=== PATIENT | male | born 1970 | race Caucasian/White ===

== ENCOUNTER → 2016-10-19 | Outpatient (CLI) | payer OTHER ==
[2016-10-19 09:43] LABS: MEAN CORPUSCULAR HEMOGLOBIN 30.4 pg (27.0-33.0); MEAN CORPUSCULAR HGB CONC 33.3 g/dl (32.0-36.5); MEAN CORPUSCULAR VOLUME 91.3 fl (80.0-96.0); RED CELL DISTRIBUTION WIDTH 13.1 % (11.5-14.5); WHITE BLOOD COUNT 5.3 K/mm3 (4.0-10.0)
[2016-10-19 09:53] LABS: ALBUMIN/GLOBULIN RATIO 1.11 (1.00-1.93); BILIRUBIN,TOTAL 0.8 MG/DL (0.2-1.0); CALCIUM LEVEL 9.5 MG/DL (8.5-10.1); CREATININE FOR GFR 1.39 MG/DL (0.70-1.30); GLOMERULAR FILTRATION RATE 58.6 (>60); TOTAL PROTEIN 7.6 GM/DL (6.4-8.2)
[2016-10-19 09:56] LABS: INR 1.06
[2016-10-19 09:57] LABS: POTASSIUM SERUM 5.3 MEQ/L (3.5-5.1)
--- NOTE | 2016-10-20 01:51 | REP ---
Clinical: Operative assessment . Comparison: 04/26/2004 . Technique: PA and lateral. Findings: The mediastinum and cardiac silhouette are normal. Airway is midline and patent. The lung daniel are clear and without acute consolidation, effusion, or pneumothorax. The skeletal structures are intact and normal. Impression: 1. No acute cardiopulmonary process. Signed by Nilesh Tony MD 10/20/2016 01:43 A
--- NOTE | 2016-10-21 00:43 | ECGEPIP ---
Stationary ECG Study [facility] Test Date: 2016-10-19 Pat Name: DANAE HUTCHISON Department: Room: - Gender: M Linen Room Houseperson: KEVIN : 1970 Requested By: Jessica Rosales Order Number: [id number] Reading MD: Carlos Hill Measurements Intervals [place] Rate: 87 P: 59 [place]: 178 QRS: 79 QRSD: 103 T: -21 QT: 336 QTc: 405 Interpretive Statements SINUS RHYTHM ST ELEVATION CONSISTENT WITH EARLY REPOLARIZATION NONSPECIFIC ST & T-WAVE ABNORMALITY Last tracing on 04/26/2013 at 9:56:12. No significant changes but nonspecific ST-T abnormality Electronically Signed On 10-21-2016 0:43:43 EDT by Carlos Hill
== END ==
LOC: M LAB 08:29
PROVIDERS: ATTEND Family Medicine
DX: Z01.818 Encounter for other preprocedural examination (principal); R94.31 Abnormal electrocardiogram [ECG] [EKG]

== ENCOUNTER → 2016-11-04 | Outpatient (CLI) | payer OTHER ==
--- NOTE | 2016-11-04 10:54 | ECGEPIP ---
Stationary ECG Study [facility] Test Date: 2016-11-04 Pat Name: DANAE HUTCHISON Department: Room: - Gender: M Planning Management It Specialist: : 1970 Requested By: Jessica Rosales Order Number: [id number] Reading MD: Freya Carranza Measurements Intervals [place] Rate: 84 P: 60 TN: 166 QRS: 81 QRSD: 91 T: -21 QT: 339 QTc: 401 Interpretive Statements SINUS RHYTHM INF T-WAVE ABNORMALITY MILD EARLY REPOLAR CHANGES STABLE C/W 10/19/16 Electronically Signed On 11-04-2016 10:54:26 EDT by Freya Carranza
== END ==
LOC: M LAB 08:11
PROVIDERS: ATTEND Family Medicine
DX: E78.5 Hyperlipidemia, unspecified (principal); I10 Essential (primary) hypertension

== ENCOUNTER → 2018-10-05 | Outpatient (CLI) | payer BC ==
--- NOTE | 2018-10-05 16:17 | REP ---
Chest two views HISTORY: Fever Comparison: 10/19/2016 The lungs are clear. The heart is normal in size. The pulmonary vasculature is normal in appearance. The bony structure is intact. IMPRESSION: No acute disease. Electronically Signed by Jose Luis Amos MD 10/05/2018 04:09 P
[2018-10-05 19:54] LABS: BASO % 0.4 % (0.0-1.0); EOS # 0.3 10^3/uL (0.0-0.50); EOS % 4.3 % (0.0-3.0); HEMATOCRIT 53.5 % (42.0-52.0); HEMOGLOBIN 17.1 g/dl (13.5-17.5); LYMPH # 0.5 10^3/uL (1.5-4.5); LYMPH % 6.5 % (24.0-44.0); MEAN CORPUSCULAR HEMOGLOBIN 29.4 pg (27.0-33.0); MEAN CORPUSCULAR VOLUME 92.1 fl (80.0-96.0); MONO # 0.5 10^3/uL (0.0-0.8); MONO % 7.1 % (0.0-5.0); NEUTROPHILS # 5.7 10^3/uL (1.8-7.7); NEUTROPHILS % 81.3 % (36.0-66.0); PLATELET COUNT, AUTOMATED 214 10^3/uL (150-450); RED BLOOD COUNT 5.81 10^6/uL (4.30-6.10)
[2018-10-05 20:02] LABS: ALBUMIN 3.8 GM/DL (3.2-5.2); BILIRUBIN,TOTAL 0.5 MG/DL (0.2-1.0); CALCIUM LEVEL 8.9 MG/DL (8.5-10.1); CREATININE FOR GFR 1.42 MG/DL (0.70-1.30); GLOMERULAR FILTRATION RATE 56.6 (>60); POTASSIUM SERUM 4.3 MEQ/L (3.5-5.1); TOTAL PROTEIN 6.9 GM/DL (6.4-8.2)
== END ==
LOC: M WUC 15:57
PROVIDERS: ATTEND Physician Assistant
DX: R05 Cough (principal)

== ENCOUNTER → 2019-02-26 | Outpatient (CLI) | payer BC ==
[2019-02-26 16:25] LABS: BASO % 0.6 % (0.0-1.0); EOS # 0.3 10^3/uL (0.0-0.5); EOS % 5.4 % (0.0-3.0); HEMATOCRIT 53.5 % (42.0-52.0); HEMOGLOBIN 17.5 g/dl (13.5-17.5); LYMPH # 0.7 10^3/uL (1.5-5.0); LYMPH % 13.7 % (24.0-44.0); MEAN CORPUSCULAR HEMOGLOBIN 30.5 pg (27.0-33.0); MEAN CORPUSCULAR HGB CONC 32.7 g/dl (32.0-36.5); MEAN CORPUSCULAR VOLUME 93.4 fl (80.0-96.0); MONO # 0.6 10^3/uL (0.0-0.8); MONO % 11.2 % (0.0-5.0); NEUTROPHILS # 3.6 10^3/uL (1.5-8.5); NEUTROPHILS % 68.9 % (36.0-66.0); PLATELET COUNT, AUTOMATED 211 10^3/uL (150-450); RED BLOOD COUNT 5.73 10^6/uL (4.30-6.10); WHITE BLOOD COUNT 5.2 10^3/uL (4.0-10.0)
[2019-02-26 16:35] LABS: ALBUMIN 3.6 GM/DL (3.2-5.2); ALT/SGPT 39 U/L (12-78); BILIRUBIN,TOTAL 0.6 MG/DL (0.2-1.0); BLOOD UREA NITROGEN 11 MG/DL (7-18); CALCIUM LEVEL 8.7 MG/DL (8.5-10.1); CARBON DIOXIDE LEVEL 34 MEQ/L (21-32); CHLORIDE LEVEL 101 MEQ/L (98-107); CREATININE FOR GFR 1.31 MG/DL (0.70-1.30); GLOMERULAR FILTRATION RATE > 60.0 (>60); GLUCOSE, FASTING 77 MG/DL (70-100); POTASSIUM SERUM 4.8 MEQ/L (3.5-5.1); SODIUM LEVEL 139 MEQ/L (136-145); TOTAL PROTEIN 6.7 GM/DL (6.4-8.2)
[2019-02-26 18:52] LABS: CHLAMYDIA DNA AMPLIFICATION NEGATIVE (NEGATIVE); GC DNA AMPLIFICATION NEGATIVE (NEGATIVE)
== END ==
LOC: M WUC 14:10
PROVIDERS: ATTEND Physician Assistant
DX: R53.83 Other fatigue (principal); J02.9 Acute pharyngitis, unspecified; R30.0 Dysuria

== ENCOUNTER → 2020-07-02 | Outpatient (CLI) | payer BC ==
[2020-07-02 08:49] LABS: ALBUMIN 3.9 GM/DL (3.2-5.2); BILIRUBIN,TOTAL 0.4 MG/DL (0.2-1.0); CALCIUM LEVEL 8.7 MG/DL (8.5-10.1); CHOLESTEROL RISK RATIO 4.77 (<5); CREATININE FOR GFR 1.42 MG/DL (0.70-1.30); FREE T4 0.87 NG/DL (0.76-1.46); GLOMERULAR FILTRATION RATE 56.2 (>56); POTASSIUM SERUM 4.5 MEQ/L (3.5-5.1); THYROID STIMULATING HORMONE 7.18 uIU/ML (0.358-3.740); TOTAL PROTEIN 7.1 GM/DL (6.4-8.2)
== END ==
LOC: M LAB 07:43
PROVIDERS: ATTEND Family Medicine
DX: E78.2 Mixed hyperlipidemia (principal); Z13.1 Encounter for screening for diabetes mellitus; Z86.39 Personal history of other endocrine, nutritional and metabolic disease; Z12.5 Encounter for screening for malignant neoplasm of prostate
CPT/HCPCS: 36415; 80053; 80061; 84439; 84443; G0103

== ENCOUNTER → 2020-08-06 | Outpatient (CLI) | payer BC ==
[2020-08-06 08:37] LABS: CALCIUM LEVEL 8.9 MG/DL (8.5-10.1); CREATININE FOR GFR 1.41 MG/DL (0.70-1.30); GLOMERULAR FILTRATION RATE 56.6 (>56); POTASSIUM SERUM 4.3 MEQ/L (3.5-5.1)
== END ==
LOC: M LAB 07:38
PROVIDERS: ATTEND Family Medicine
DX: R94.4 Abnormal results of kidney function studies (principal)

== ENCOUNTER → 2020-08-15 | Outpatient (CLI) | payer SELFPAY | LOC: M LABSMTC 09:50 | PROVIDERS: ATTEND Pediatrics | DX: Z20.822 Contact with and (suspected) exposure to COVID-19 (principal) ==

== ENCOUNTER → 2020-08-20 | Outpatient (CLI) | payer BC ==
--- NOTE | 2020-08-21 13:51 | SLEEPHOME ---
DATE: 08/20/2020 ORDERED BY: DORINA Osborne Diagnostic home sleep testing was performed due to concern for the obstructive sleep apnea syndrome in this patient with a history of excessive somnolence and nonrestorative sleep. For testing, a nocturnal T3 respiratory monitoring device was used. Continuous record was made of pulse, oxygen saturation, air flow, chest and abdominal strain, and body position. Nine hours and 59 minutes of data were reviewed. There were 9 hours and 29 minutes marked as time in bed. During the interval marked time in bed, there were 308 respiratory events identified of 10 seconds in duration or greater for a respiratory event index of 32.5. The events were predominantly obstructive. However, 106 mixed and central apneas were seen. Baseline pulse rate was 76. Pulse rate ranged 57 to 121. Baseline saturation was 92%. Saturations fell to 63% and testing was performed in both the supine and nonsupine positions. IMPRESSION: Abnormal home sleep testing with repetitive respiratory events and oxygen desaturations to 63% with a respiratory event index of 32.5 is consistent with the obstructive sleep apnea syndrome. RECOMMENDATION: The patient should be encouraged to undergo a formal sleep evaluation. cc: RENUKA HI MD
== END ==
LOC: M SLEEP HO 11:27
PROVIDERS: ATTEND Nurse Practitioner Family
DX: R06.83 Snoring (principal)

== ENCOUNTER → 2020-09-03 | Outpatient (CLI) | payer BC ==
--- NOTE | 2020-09-04 16:32 | SLEEPCENT ---
NOCTURNAL POLYSOMNOGRAPHY CPAP TITRATION DATE: 09/03/2020 ORDERED BY: CINDY Osborne Nocturnal polysomnography was performed for the titration of pressure therapy in this patient with a clinical diagnosis of obstructive sleep apnea syndrome confirmed by home testing, revealing a respiratory event index of 32.5. For testing a ResMed Quattro full face mask of large size was used, 4 cm of water pressure were applied to the circuit, and the lights were extinguished. 6 hours and 14 minutes of data were reviewed. There were 307.5 minutes of sleep identified. Sleep latency was mildly prolonged at 29 minutes. REM latency was short at 63 minutes. Sleep architecture was good with three REM cycles. Overall sleep efficiency was 83.6%. The electrocardiogram showed a sinus rhythm with an average heart rate of 66 beats per minute. EEG showed normal waveforms for wake and sleep. Respiratory events were fully palliated with CPAP at a pressure of +12 and remaining measures of sleep physiology were normal. IMPRESSION: Obstructive sleep apnea syndrome (G47.33). RECOMMENDATION: Nightly use of pressure therapy 12 cm of water.
== END ==
LOC: M SLEEP 20:00
PROVIDERS: ATTEND Nurse Practitioner Family
DX: G47.33 Obstructive sleep apnea (adult) (pediatric) (principal)

== ENCOUNTER → 2020-09-23 | Outpatient (CLI) | payer BC | LOC: M LAB 12:35 | PROVIDERS: ATTEND Family Medicine | DX: E03.9 Hypothyroidism, unspecified (principal) ==

== ENCOUNTER → 2024-04-20 | Outpatient (CLI) | payer BC | LOC: M WUC 13:50 | PROVIDERS: ATTEND Physician Assistant | DX: S32.111A Minimally displaced Zone I fracture of sacrum, initial encounter for closed fracture (principal); S30.0XXA Contusion of lower back and pelvis, initial encounter; W01.10XA Fall on same level from slipping, tripping and stumbling with subsequent striking against unspecified object, initial encounter; Y93.9 Activity, unspecified; Y92.9 Unspecified place or not applicable ==

== ENCOUNTER → 2024-05-25 | Outpatient (CLI) | payer BC, OTHER | LOC: M WUC 15:55 | PROVIDERS: ATTEND Physician Assistant | DX: S50.12XA Contusion of left forearm, initial encounter (principal); S60.212A Contusion of left wrist, initial encounter; Y93.9 Activity, unspecified; Y92.9 Unspecified place or not applicable ==

== ENCOUNTER 2024-06-25 00:57 | Emergency (ER) | payer OTHER ==
[~2024-06-25] VITALS: Ht 175.3 cm; Wt 89.5 kg
[2024-06-25] MEDS: NS (Normal Saline) 0.9% 1,000 ML IV ONE (01:05)
[2024-06-25 01:08] VITALS: BP 120/75; TEMP 98.1; O2SAT 100
[2024-06-25 01:18] LABS: BASO % 0.5 % (0.0-1.0); EOS # 0.1 10^3/uL (0.0-0.5); EOS % 2.2 % (0.0-3.0); HEMATOCRIT 44.4 % (42.0-52.0); HEMOGLOBIN 14.9 g/dl (13.5-17.5); LYMPH # 0.3 10^3/uL (1.5-5.0); LYMPH % 4.3 % (24.0-44.0); MEAN CORPUSCULAR HEMOGLOBIN 30.7 pg (27.0-33.0); MEAN CORPUSCULAR HGB CONC 33.6 g/dl (32.0-36.5); MEAN CORPUSCULAR VOLUME 91.5 fl (80.0-96.0); MONO # 0.6 10^3/uL (0.0-0.8); MONO % 9.9 % (2.0-8.0); NEUTROPHILS # 5.4 10^3/uL (1.5-8.5); NEUTROPHILS % 82.9 % (36.0-66.0); PLATELET COUNT, AUTOMATED 234 10^3/uL (150-450); RED BLOOD COUNT 4.85 10^6/uL (4.30-6.10); VENOUS BASE EXCESS 3.7 (-2.0-2.0); VENOUS HCO3 28.1 MMOL/L (23.0-27.0); VENOUS PARTIAL PRESSURE CO2 41.4 mmHg (38.0-50.0); VENOUS PARTIAL PRESSURE O2 29.8 mmHg (30.0-50.0); VENOUS PH 7.449 UNITS (7.330-7.430); VENOUS STANDARD HCO3 26.8 MMOL/L; VENOUS TOTAL CO2 29.3 MMOL/L (24.0-28.0); WHITE BLOOD COUNT 6.5 10^3/uL (4.0-10.0)
[2024-06-25 01:46] LABS: LIPASE 87 U/L (12-53)
[2024-06-25 01:47] LABS: ETHYL ALCOHOL (ETHANOL) < 0.003 % (0.000-0.010)
[2024-06-25 01:49] LABS: ALKALINE PHOSPHATASE 48 U/L (40-129); ALT/SGPT 35 U/L (7.0-40); AST/SGOT 40 U/L (<34); BILIRUBIN,DIRECT < 0.1 MG/DL (<0.4); BILIRUBIN,TOTAL 0.2 MG/DL (0.3-1.2); BLOOD UREA NITROGEN 8 MG/DL (9-23); CALCIUM LEVEL 8.1 MG/DL (8.5-10.1); CARBON DIOXIDE LEVEL 29 MMOL/L (20-31); CHLORIDE LEVEL 98 MMOL/L (98-107); CK-MB VALUE MASS 2.2 NG/ML (<3.6); CREATININE FOR GFR 1.14 MG/DL (0.70-1.30); GLOMERULAR FILTRATION RATE > 60.0 (>56); GLUCOSE, FASTING 100 MG/DL (60-100); POTASSIUM SERUM 4.1 MMOL/L (3.5-5.1); SODIUM LEVEL 135 MMOL/L (136-145); TOTAL PROTEIN 6.1 G/DL (5.7-8.2)
[2024-06-25 01:51] LABS: THYROID STIMULATING HORMONE 2.803 uIU/ML (0.55-4.78)
[2024-06-25 01:55] LABS: CPK CREATINE PHOSPHOKINASE 777 U/L (46-171); MB/CK RELATIVE INDEX 0.28 (< OR =4)
[2024-06-25] MEDS: MIDAZOLAM INJ 2MG/2ML VIAL IV STA (01:56)
[2024-06-25 02:53] LABS: CK-MB VALUE MASS 2.3 NG/ML (<3.6)
[2024-06-25 02:54] LABS: MB/CK RELATIVE INDEX 0.3 (< OR =4)
[2024-06-25] MEDS ORDERED: OSEL75CA PO (03:04)
[2024-06-25 03:23] LABS: BARBITURATES URINE NEGATIVE (NEGATIVE); BENZODIAZEPINES URINE NEGATIVE (NEGATIVE); CANNABINOIDS URINE NEGATIVE (NEGATIVE); METHADONE URINE NEGATIVE (NEGATIVE); OPIATES URINE NEGATIVE (NEGATIVE); PHENCYCLIDINE URINE NEGATIVE (NEGATIVE)
[2024-06-25] MEDS: OSELTAMIVIR PHOSPHATE 75 MG CAP PO ONE (03:25)
[2024-06-25 03:26] LABS: COCAINE METABOLITE URINE POSITIVE (NEGATIVE)
[2024-06-25 04:13] LABS: AMPHETAMINES LEVEL URINE NEGATIVE (NEGATIVE)
== END 2024-06-25 03:52 | disposition home or self-care (01) ==
LOC: EDBD 00:57 → M ED 00:57
DX: F19.10 Other psychoactive substance abuse, uncomplicated (principal); J09.X2 Influenza due to identified novel influenza A virus with other respiratory manifestations; R07.9 Chest pain, unspecified; I49.1 Atrial premature depolarization; R00.0 Tachycardia, unspecified; F10.10 Alcohol abuse, uncomplicated; F17.200 Nicotine dependence, unspecified, uncomplicated; Z79.899 Other long term (current) drug therapy
CPT/HCPCS: 71045; 80048; 80076; 80307; 82077; 82550; 82553; 82803; 83690; 83880; 84443; 84484; 85025; 87040; 87486; 87581; 87633; 87798; 93005; 93041; 94760; 96374; 99284; J2250

== ENCOUNTER 2024-09-10 00:27 | Emergency (ER) | payer OTHER ==
[~2024-09-10] VITALS: Ht 172.7 cm; Wt 84.1 kg
[~2024-09-10 00:27] MED LIST: OSEL75CA PO
[2024-09-10 00:52] LABS: BASO # 0.1 10^3/uL (0.0-0.2); BASO % 0.7 % (0.0-1.0); EOS # 0.4 10^3/uL (0.0-0.5); EOS % 4.4 % (0.0-3.0); HEMATOCRIT 44.2 % (42.0-52.0); HEMOGLOBIN 15.1 g/dl (13.5-17.5); LYMPH # 1.3 10^3/uL (1.5-5.0); LYMPH % 16.4 % (24.0-44.0); MEAN CORPUSCULAR HGB CONC 34.2 g/dl (32.0-36.5); MEAN CORPUSCULAR VOLUME 90.8 fl (80.0-96.0); MONO # 0.6 10^3/uL (0.0-0.8); MONO % 7.1 % (2.0-8.0); NEUTROPHILS # 5.8 10^3/uL (1.5-8.5); NEUTROPHILS % 71.2 % (36.0-66.0); PLATELET COUNT, AUTOMATED 306 10^3/uL (150-450); RED BLOOD COUNT 4.87 10^6/uL (4.30-6.10); WHITE BLOOD COUNT 8.1 10^3/uL (4.0-10.0)
[2024-09-10 01:23] LABS: CALCIUM LEVEL 8.9 MG/DL (8.5-10.1); CREATININE FOR GFR 1.25 MG/DL (0.70-1.30); GLOMERULAR FILTRATION RATE 68.4 (>56); POTASSIUM SERUM 3.8 MMOL/L (3.5-5.1)
[2024-09-10 01:53] LABS: CK-MB VALUE MASS 5.3 NG/ML (<3.6); MB/CK RELATIVE INDEX 0.4 (< OR =4)
[2024-09-10] MEDS: NS (Normal Saline) 0.9% 1,000 ML IV ONE (02:15)
[2024-09-10 03:01] LABS: CK-MB VALUE MASS 4.2 NG/ML (<3.6)
[2024-09-10 03:04] LABS: MB/CK RELATIVE INDEX 0.34 (< OR =4)
[2024-09-10 04:00] VITALS: BP 166/91; TEMP 97.6
[2024-09-10 04:01] VITALS: O2SAT 97
== END 2024-09-10 04:11 | disposition home or self-care (01) ==
LOC: M ED 00:27
DX: I20.1 Angina pectoris with documented spasm (principal); F14.120 Cocaine abuse with intoxication, uncomplicated; I45.81 Long QT syndrome; E03.9 Hypothyroidism, unspecified; F17.200 Nicotine dependence, unspecified, uncomplicated; F10.10 Alcohol abuse, uncomplicated; Z79.899 Other long term (current) drug therapy